=== PATIENT | female | born 1945 | race Caucasian/White ===

== ENCOUNTER 2025-02-09 13:26 | Emergency (ER) | payer MEDICARE, BC ==
[~2025-02-09] VITALS: Ht 167.6 cm; Wt 67.4 kg
[2025-02-09 13:31] VITALS: TEMP 98
--- NOTE | 2025-02-09 14:22 | Physician Documentation ---
History of Present Illness ~ Chief Complaint: Mechanical Fall Stated Complaint: FALL HEAD LAC NO THINNERS Time Seen by MD: 13:54 Mode of Arrival: POV HPI This is a very pleasant 79-year-old female who reports no significant past medical history presents for evaluation of potential injuries sustained in the fall. She states that she just got and vacuuming, was rolling after cord into her VAC, when suddenly she had fallen. She does not actually remembers the fall. She is uncertain whether she lost consciousness. It was not accompanied by chest pain or difficulty breathing. She came to already on the floor. She has a small laceration to the left of her left eye. She also has a laceration on her left lower extremity. This never happened in the past. She has a known history of syncope. Has a known history of malignant arrhythmia. Denies any chest pain or difficulty breathing. Denies any fever, chills, nausea, vomiting, diarrhea, abdominal pain. No concern for tobacco, alcohol or illicit substances use Medication Reconciliation Allergies: Coded Allergies: No Known Allergies (Unverified , 02/09/25) Scheduled Atorvastatin Calcium (Atorvastatin Calcium), 1 TAB PO DAILY, (Reported) Bupropion HCl (Bupropion Xl), 1 TAB PO DAILY, (Reported) Celecoxib (Celecoxib), 1 CAP PO DAILY, (Reported) Cephalexin (Cephalexin), 1 CAP PO DAILY, (Reported) Folic Acid* (Folic Acid*), 1 TAB PO DAILY, (Reported) Omeprazole (Omeprazole), 1 CAP PO DAILY, (Reported) Miscellaneous Medications Levothyroxine Sodium (Levothyroxine Sodium), (Reported) Review of Systems ROS 10 point review of systems was performed and unless noted above in HPI is negative for acute process/complaint. Physical Exam Vital Signs: Temperature: 98.0, Source: Temporal, Heart Rate: 80, Respiratory Rate: 16, BP: 130/80, Pulse Oximetry: 99, Weight: 67.400 Oxygen Flow Rate: 0 Physical Exam GENERAL: Awake, alert, oriented, GCS 15, no apparent distress, non-toxic appearing, answers questions, follows commands appropriately. HEENT: There is a small laceration to the medial aspect of her left , with a small amount of oozing, advent normocephalic, pupils equal, extraocular muscles intact, sclerae anicteric, mucus membranes moist, oropharynx is clear, no stridor. NECK: supple, full active range of motion, trachea midline, no thyromegaly, no lymphadenopathy, no JVD. CARDIOVASCULAR: regular rate/rhythm, no murmurs/gallops/rubs, Pulses are 2+ in all extremities and symmetric. Capillary refill less than 2 seconds. PULMONARY: Nonlabored, good air movement ,no respiratory distress, speaking in full sentences, clear to auscultation bilaterally, no wheezing, no ronchi, no rales, no accessory muscle use. GASTROINTESTINAL: Soft, non-tender, non-distended, normal active bowel sounds, no organomegaly, no pulsatile masses, no CVA tenderness. NEUROLOGIC: Lucid with normal mental status. Normal facial symmetry. Moves all extremities symmetrically and with purpose. No truncal ataxia. Speech is fluid without evidence of dysarthria or aphasia, no focal deficits appreciated. MUSCULOSKELETAL: There is full range of motion of all extremities. There is no joint pain or joint swelling or joint erythema. There is no muscle pain or tenderness or swelling. EXTREMITIES: warm, well-perfused, no cyanosis, no clubbing, no edema, no acute deformities. Skin: warm, dry, no rashes or lesions, no jaundice, no petechiae orpurpura. No ecchymosis. PSYCHIATRIC: Normal affect, normal insight, normal concentration. Focused exam: [Montgomery-shaped laceration, superficial, to the left lower extremity, no active bleeding, neurovascularly intact distally] Procedures Laceration / Wound Repair : Anesthesia: Lidocaine w/ Epi Prep: irrigated by nurse Suture Size/Type: 5-0 Number of Superficial Sutures: 3 Progress Results/Orders Results/Orders Orders - BLAKE FISHER DO Chest,Single View (02/09/25 14:15) Ct Head (02/09/25 14:37) Hs Troponin I W Calculations (02/09/25 17:15) Ct Cervical Spine (02/09/25 14:37) Completed Orders - BLAKE FISHER DO Electrocardiogram (02/09/25 14:15) Cbc/Diff (02/09/25 14:15) D-Dimer (02/09/25 14:15) Pt Inr (02/09/25 14:15) PTT (02/09/25 14:15) Chest,Single View (02/09/25 14:15) PBNP (02/09/25 14:15) MG (02/09/25 14:15) Normal Saline 1000ml (Sodium Chloride 10 (02/09/25 14:15) Ct Head (02/09/25 14:37) CMP (02/09/25 14:15) Hs Troponin I W Calculations (02/09/25 14:15) Hs Troponin I W Calculations (02/09/25 16:15) Ct Cervical Spine (02/09/25 14:37) Lidocaine 1% W/Epi 1:100,000 (Xylocaine (02/09/25 16:30) Medications Received in ER Medications (Trade) Dose Ordered Sig/Ines Route PRN Reason Start Time Stop Time Status Last Admin Dose Admin (sodium chloride 1000ml IV soln) 1,000 ml ONCE ONCE IVB 02/09/25 14:15 02/09/25 14:17 DC 02/09/25 14:54 1,000 ML Vital Signs 02/09/25 02/09/25 13:31 14:54 Temp 98.0 Pulse 80 66 Resp 16 16 B/P (MAP) 130/80 151/87 (108) Pulse Ox 99 98 O2 Flow Rate 0 Laboratory Tests Test 02/09/25 14:25 02/09/25 16:24 White Blood Count 7.1 Red Blood Count 4.00 L Hemoglobin 12.7 Hematocrit 37.4 Mean Corpuscular Volume 93.6 Mean Corpuscular Hemoglobin 31.7 H Mean Corpuscular Hemoglobin Concent 33.9 Red Cell Distribution Width 13.9 Platelet Count 171 Mean Platelet Volume 8.4 Neutrophils (%) (Auto) 76.1 H Lymphocytes (%) (Auto) 14.5 L Monocytes (%) (Auto) 7.4 Eosinophils (%) (Auto) 1.2 Basophils (%) (Auto) 0.8 Neutrophils # (Auto) 5.4 Lymphocytes # (Auto) 1.0 L Monocytes # (Auto) 0.5 Eosinophils # (Auto) 0.1 Basophils # (Auto) 0.1 CBC Comment Prothrombin Time 10.6 INR International Normalized Ratio 1.0 Activated Partial Thromboplast Time 25 D-Dimer 1.36 H D-Dimer Comment Coagulation Comments Sodium Level 141 Potassium Level 4.1 Chloride Level 106 Carbon Dioxide Level 30.1 Anion Gap 5 L Blood Urea Nitrogen 17 Creatinine 1.02 H Estimated GFR/1.73 m2 52 BUN/Creatinine Ratio 16.7 Glucose Level 94 Calcium Level 9.1 Magnesium Level 2.0 Total Bilirubin 0.7 Aspartate Amino Transf (AST/SGOT) 21 Alanine Aminotransferase (ALT/SGPT) 16 Alkaline Phosphatase 74 Troponin I High Sensitivity 6 6 Pro-B-Type Natriuretic Peptide 414 Total Protein 6.5 Albumin 3.6 Globulin 2.9 Albumin/Globulin Ratio 1.2 Chemistry Comments Troponin I High Sens Percent Delta 0 Troponin I Hi Sens Absolute Change 0 Medical Decision Making Findings Facility Status: ED Holds, [facility] process The plan was discussed with the patient, who demonstrates clear understanding of the plan and is in agreement with the plan unless otherwise noted in the chart. All questions have been answered, all concerns were addressed unless otherwise documented. I was available throughout their ED stay for frequent reassessment and que stions. Differential Diagnoses (considered and possible or likely): [Lack of prodrome in the fact the patient does not recall falling, is concerning for a cardiogenic syncope, otherwise ground level fall, acute traumatic pain, closed head injury, concussion, subdural, subarachnoid, cervical spine fracture or subluxation, orthostatic versus vasovagal event. Less likely ACS. Less likely PE.] ??Differential Diagnoses (considered and unlikely, not requiring evaluation currently): [Aortic/great vessels dissection was considered but it is unlikely based on absence of ripping, tearing, migratory chest pain, absence of focal neurologic deficits, physical examination indicating equal and symmetric pulses. ] MDM Data Please see HPI for the following: Independent Historians and external Records Review. Historian: [Patient] Independent Historians: ?[None] Medication Management: [Reviewed medication list] Social History and determinants: [Reviewed] Please see the body of the note for the following: Any independent interpretations of ECG, imaging studies. All vitals signs/haemodynamics, ordered tests were independently reviewed and interpreted by myself. Nursing triage complaint and vitals reviewed, additional nursing notes were reviewed as available and I agree unless otherwise noted or documented in contradiction in the chart Vital Signs: Independently reviewed Labs: Independently interpreted Imaging: Independently interpreted Old Medical Records: Independently reviewed, see HPI for relevant summary and information Pulse Oximetry: [94%] interpreted as [normal on room air] by me [Order Tracer: [Regular Rate, Regular rhythm, no ectopy, NSR] reviewed and interpreted by me] Additionally notably showing: [Hemodynamics review. The patient is not febrile, not tachycardic, no evidence of hypotension respiratory distress. CBC normal. Coagulation panel is unremarkable. D-dimer was elevated. Metabolic panel was essentially normal. Troponin negative twice. CT head shows no acute intracranial abnormality. CT cervical spine shows no acute disease. Chest x-ray is unremarkable. CTA chest has been considerably the patient does not want to stay she is the primary caregiver to her . I did explain to her that she needs to be admitted for syncope workup, however she does not desire to do so and prefers to follow-up with the primary care.] Tests considered but not ordered include: [See above] Social Determinants of Health Impact: Patient was evaluated in [facility] [place] to healthcare due to below par ratio of patient to medical providers. [] Comorbid Conditions Impacting Present Evaluation and Care/Treatment: [See list] Management Discussions with other Healthcare Providers: [] Treatment and Disposition Medication Management (Given or considered): []. See EMR for details Consideration for Hospitalization/Escalation/Deescalation of Care: Admission for observation has been considered, [however the patient is able to tolerate p.o., their symptoms are controlled, they are able to rely on oral medications, and their chief complaint/diagnosis can be managed on outpatient basis.] ?ED Course:?[Patient does not want to stay. She will leave against medical advice.] ?Shared decision making:?[] Code status:?FULL Please see the full Electronic Medical Record for full details of nursing d ocumentation, medications list, other records of complete past medical history and conditions, vital signs, laboratory studies, and any radiologic study interpretations by radiologists. Portions of this note were completed using [employer] dictation software and as a result there may exist minor errors in spelling. I have reviewed elements of past family and social history and agree as included in note. Departure Disposition: 07 LEFT AGAINST MEDICAL ADVICE Impression: Primary Impression: Syncope Additional Impressions: Facial laceration Closed head injury Condition: Improved Discharge Instructions: Head Injury, Adult, Laceration Care, Adult, [id number], Syncope, Adult Additional Instructions: Sutures out in five days You were offered admission for observation and syncope workup, however you declined. Feel free to return to emergency department to continue your evaluation for syncope. Otherwise, you need to follow-up with the primary care provider and continue to do the workup and investigate why he lost consciousness today. Referrals: NO PRIMARY CARE PROVIDER (PCP) Education Educated: Patient Educated regarding: diagnosis, treatment, prognosis, need for follow up Signature Scribe Signature: No scribe Attestation: This note accurately reflects clinical decisions, work performed by myself, Blake Fisher, BLAKE MATA DO February 09, 2025 14:22
--- NOTE | 2025-02-09 14:28 | ELECTROCARDIOGRAPH REPORT ---
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 Keyon Cartwright Measurements Intervals [place] Rate: 63 P: 46 [place]: 135 QRS: 32 QRSD: 92 T: 38 QT: 389 QTc: 399 Interpretive Statements Sinus rhythm Low voltage, precordial leads Electronically Signed On 02-10-2025 6:49:[address] Keyon Cartwright Please click the below link to view image of tracing.
[2025-02-09 14:36] LABS: BASOPHILS # (AUTO) 0.1 X10'3 (0-0.2); BASOPHILS % (AUTO) 0.8 % (0-1); EOSINOPHILS # (AUTO) 0.1 X10'3 (0-0.9); EOSINOPHILS % (AUTO) 1.2 % (0-6); HEMATOCRIT 37.4 % (35.0-45.0); HEMOGLOBIN 12.7 g/dl (12.0-16.0); LYMPHOCYTES % (AUTO) 14.5 % (21-51); MEAN CORPUSCULAR HEMOGLOBIN 31.7 PG (27.0-31.0); MEAN CORPUSCULAR HGB CONC 33.9 g/dL (33.0-36.5); MEAN CORPUSCULAR VOLUME 93.6 FL (78-98); MEAN PLATELET VOLUME 8.4 FL (7.4-10.4); MONOCYTES # (AUTO) 0.5 X10'3 (0-0.9); MONOCYTES % (AUTO) 7.4 % (2-12); NEUTROPHILS # (AUTO) 5.4 X10'3 (1.8-7.7); NEUTROPHILS % (AUTO) 76.1 % (42-75); PLATELET COUNT 171 X10'3 (140-440); RED CELL DISTRIBUTION WIDTH 13.9 % (11.5-14.5); WHITE BLOOD COUNT 7.1 X10'3 (4.5-11.0)
[2025-02-09] MEDS ORDERED: FOLI1TAB27 PO (14:47)
[2025-02-09] MEDS ORDERED: CELE-127 PO (14:47)
[2025-02-09] MEDS ORDERED: CEPH250C2 PO (14:47)
[2025-02-09] MEDS ORDERED: ATOR40TA72 PO (14:47)
[2025-02-09] MEDS ORDERED: LEVO100T9 (14:47)
[2025-02-09] MEDS ORDERED: OMEP20CA16 PO (14:47)
[2025-02-09] MEDS ORDERED: BUPR-480 PO (14:47)
[2025-02-09 14:48] LABS: APTT 25 SECONDS (22-32); D-DIMER 1.36 MG/L FEU (0-0.50); PROTHROMBIN TIME 10.6 SECONDS (9.0-12.0)
[2025-02-09 14:53] LABS: ALANINE AMINOTRANSFERASE 16 U/L (12-78); ALBUMIN 3.6 G/DL (3.4-5.0); ALBUMIN/GLOBULIN RATIO 1.2 (1.1-1.5); ALKALINE PHOSPHATASE 74 IU/L (46-116); ANION GAP 5 (8-16); ASPARTATE AMINO TRANSFERASE 21 U/L (10-37); BILIRUBIN,TOTAL 0.7 MG/DL (0.1-1.0); BLOOD UREA NITROGEN 17 MG/DL (7-18); BUN/CREATININE RATIO 16.7 (10.0-20.0); CALCIUM 9.1 MG/DL (8.5-10.1); CHLORIDE 106 MMOL/L (99-107); CREATININE 1.02 MG/DL (0.40-0.90); GLUCOSE 94 MG/DL (70-104); POTASSIUM 4.1 MMOL/L (3.5-5.1); SODIUM 141 MMOL/L (135-145); TOTAL CARBON DIOXIDE 30.1 MMOL/L (24-32); TOTAL PROTEIN 6.5 G/DL (6.4-8.2); eCRCL 40 ML/MIN; eGFR 52 ML/MIN
[2025-02-09] MEDS: normal saline 1000ML IV soln IVB ONE (14:54)
--- NOTE | 2025-02-09 14:56 | RADIOLOGY REPORT ---
EXAM: CT CT HEAD INDICATION: Fall with a head strike TECHNIQUE: CT of the head without intravenous contrast. Radiation Dose : 1. Head: CT Dose: CTDI volume is 55 mGy. Dose-length product is 1227.5 mGy*cm The dose indicators for CT are the volume Computed Tomography (CT) Dose Index (CTDIvol) and the Dose Length Product (DLP), and are measured in units of mGy and mGy-cm, respectively. These indicators are not patient dose, but values generated from the CT scanner acquisition factors. The report includes radiation exposure data for exposures received during this examination. COMPARISON: None FINDINGS: There is no evidence of acute intracranial hemorrhage, extra-axial collection, mass effect, midline s hift, herniation or hydrocephalus. The ventricles, sulci and cisterns are age appropriate. The thurston-white differentiation is intact. Patchy periventricular and subcortical white matter hypoattenuation is nonspecific but may be related to small vessel ischemic disease. The visualized paranasal sinuses and mastoid air cells are clear. The surrounding soft tissues and osseous structures are unremarkable. IMPRESSION: No acute intracranial abnormality. Radiation optimization: All CT scans at this facility use at least one of these dose optimization sebastian hniques: automated exposure control mA and/or kV adjustment per patient size (includes targeted exam s where dose is matched to clinical indication) or iterative reconstruction.
[2025-02-09 14:59] LABS: PRO BRAIN NATRIURETIC PEPTIDE 414 PG/ML (0-450)
--- NOTE | 2025-02-09 14:59 | RADIOLOGY REPORT ---
EXAM: DI CHEST,SINGLE VIEW HISTORY: Syncope COMPARISON: None TECHNIQUE: Portable upright AP view of the chest was performed. FINDINGS: No pneumothorax, consolidative infiltrates, or pulmonary edema. There is mild central peribronchial t hickening. The heart is not enlarged. There is mild thoracic degenerative disc disease. IMPRESSION: Mild reactive airways disease. The lungs are otherwise clear.
--- NOTE | 2025-02-09 15:01 | RADIOLOGY REPORT ---
EXAM: CT CT CERVICAL SPINE INDICATION: Fall with a head strike EXAM DATE: 02/09/2025 02:34 PM COMPARISON: None TECHNIQUE: Multiple axial CT images of the cervical spine were obtained using bone algorithm. Axial a nd coronal reformatting was done. Bone and soft tissue windows were reviewed. Radiation Dose Information: CT Dose: CTDI volume is 19.11 mGy. Dose-length product is 461.96 mGy*cm FINDINGS: 7 [id number] cervical type vertebrae. Reversal of the cervical lordosis. Diffuse demineralizatio n. Grade 1 anterolisthesis of C3 on C4 and C7 on T1 with grade 1 retrolisthesis of C4 on C5 of unknow n chronicity. Multilevel severe degenerative changes of the cervical spine. IMPRESSION: No evidence of acute cervical spine fracture or traumatic malalignment. All CT scans at this medical facility are performed using dose modulation techniques as appropriate t o a performed exam including the following: Automated exposure control was utilized; adjustment of th e MA and/or KV according to patient size; and use of iterative reconstruction technique.
[2025-02-09] MEDS: LIDOcaine 1% W/epiNEPHrine 1:100,000 20ml vial SQ ONE (16:36)
[2025-02-09 17:55] VITALS: BP 136/89; PULSE 75; RESP 16; O2SAT 98
== END 2025-02-09 17:57 | disposition home or self-care (01) ==
LOC: ER 13:27
DX: S01.81XA Laceration without foreign body of other part of head, initial encounter (principal); R55 Syncope and collapse; W19.XXXA Unspecified fall, initial encounter; Y93.89 Activity, other specified; Y92.89 Other specified places as the place of occurrence of the external cause; Y99.8 Other external cause status
CPT/HCPCS: 12011; 36415; 70450; 71045; 72125; 80053; 83735; 83880; 84484; 85025; 85379; 85610; 85730; 93005; 96360; 96361; 99285; A6402; J7030; Z7610; A6449

== ENCOUNTER 2025-05-06 11:37 | Outpatient (CLI) | payer MEDICARE, BC ==
[2025-05-06] VITALS (19 sets, daily range): BP systolic 90–130; BP diastolic 60–77; PULSE 64–88
[~2025-05-06 11:37] MED LIST: ATOR40TA72 PO; BUPR-480 PO; CELE-127 PO; CEPH250C2 PO; FOLI1TAB27 PO; LEVO100T9; OMEP20CA16 PO
== END 2025-05-06 23:59 | disposition home or self-care (01) ==
LOC: CARD DIAG 11:37
PROVIDERS: ATTEND Internal Medicine Interventional Cardiology
DX: R55 Syncope and collapse (principal); R00.1 Bradycardia, unspecified; I47.9 Paroxysmal tachycardia, unspecified; E07.9 Disorder of thyroid, unspecified; R07.2 Precordial pain; E78.5 Hyperlipidemia, unspecified; M79.609 Pain in unspecified limb; I08.2 Rheumatic disorders of both aortic and tricuspid valves; I79.0 Aneurysm of aorta in diseases classified elsewhere
CPT/HCPCS: 93660